=== PATIENT | female | born 1965 | race Caucasian/White ===

== ENCOUNTER → 2017-09-11 | Outpatient (CLI) | payer OTHER ==
[~2017-09-11] MED LIST: ALDACTONE25 MG PO; ASPIR 8181 MG PO; ATORVASTATIN CA40 MG PO; CO Q-10100 MG PO; CRESTOR10 MG; DIOVAN40 MG PO; FISH OIL 1,0001 EAC5 PO; MERIBIN5 MG PO; METFORMIN HCL500 MG PO; NEXIUM40 MG PO; VITAMIN B-12100 MC1; VITAMIN D35000 UNI1; [UNRECOGNIZED DRUG - OTHER]
== END ==
LOC: M.CT 08-29 13:00
DX: J98.11 Atelectasis (principal); K42.9 Umbilical hernia without obstruction or gangrene; K76.0 Fatty (change of) liver, not elsewhere classified; C64.1 Malignant neoplasm of right kidney, except renal pelvis; R06.02 Shortness of breath; I10 Essential (primary) hypertension; E78.00 Pure hypercholesterolemia, unspecified; Z85.528 Personal history of other malignant neoplasm of kidney

== ENCOUNTER → 2018-09-06 | Outpatient (CLI) | payer OTHER | LOC: M.ULTRA 08:00 → M.RAD 08:30 → M.ULTRA 08:55 | DX: Z12.31 Encounter for screening mammogram for malignant neoplasm of breast (principal); R06.2 Wheezing; C64.2 Malignant neoplasm of left kidney, except renal pelvis ==

== ENCOUNTER → 2018-11-26 | Outpatient (CLI) | payer OTHER ==
[2018-11-26 10:55] LABS: HEMATOCRIT 38.7 % (37.0-47.0); HEMOGLOBIN 13.5 gm/dL (12.0-15.0); MCH 32.2 pg (26.0-34.0); MCHC 34.9 g/dL (28.0-37.0); MCV 92.3 fL (80.0-100.0); MPV 6.8 fl. (7.2-11.1); RBC 4.2 mil/uL (4.20-5.00); RDW-CV 12.2 % (10.5-14.5); WBC 6.2 thou/uL (4.0-11.0)
[2018-11-26 11:13] LABS: ALBUMIN 4.2 g/dL (3.4-5.0); ALKALINE PHOSPHATASE 75 U/L (46-116); ANION GAP 7 mmol/L (7-16); BUN 20 mg/dL (7-18); CALCIUM 9.7 mg/dL (8.5-10.1); CHLORIDE 103 mmol/L (98-107); CHOLESTEROL 296 mg/dL (<200); CO2 31 mmol/L (21-32); GLUCOSE 96 mg/dL (70-99); HDL CHOLESTEROL 63 mg/dL (>40); LDL CHOLESTEROL 203 mg/dL (<100); POTASSIUM 4.8 mmol/L (3.5-5.1); SGOT 17 U/L (15-37); SGPT 39 U/L (30-65); SODIUM 141 mmol/L (136-145); TC:HDL 4.7 Ratio (Not establshd); TOTAL BILIRUBIN 0.4 mg/dL (<0.1-1.0); TOTAL PROTEIN 7.7 g/dL (6.4-8.2); TRIGLYCERIDE 153 mg/dL (<150); VLDL 31 mg/dL (<40)
[2018-11-26 11:18] LABS: SERUM ASSESSMENT Clear
== END ==
LOC: M.LAB 10:35
PROVIDERS: Registered Nurse
DX: C64.9 Malignant neoplasm of unspecified kidney, except renal pelvis (principal); R06.09 Other forms of dyspnea; E78.00 Pure hypercholesterolemia, unspecified

== ENCOUNTER → 2018-12-10 | Outpatient (CLI) | payer OTHER ==
[~2018-12-10] MED LIST changes: +DICYCLOMINE HCL20 MG PO; +MAGNESIUM250 M1 PO; +NORTRIPTYLINE H10 M1 PO
--- NOTE | 2018-12-10 16:07 | 2DMMODE ---
[place] [address] 2 D/M-MODE ECHOCARDIOGRAM Name: RAJAN PICKARD Room: [facility]#: [id number] Admission: 12/10/18 Attend Phys: Shane Moreno, Discharge: Date of : 69 Date of Service: 12/10/18 1607 Report #: [id number] THIS REPORT FOR: //name// APPROVED REPORT Study performed: 12/10/2018 15:05:17 EXAM: Comprehensive 2D, Doppler, and color-flow Echocardiogram Patient Location: Out-Patient BSA: 1.67 HR: 60 bpm BP: 123/83 mmHg Other Information Study Quality: Good Indications Dyspnea Chest Pain 2D Dimensions IVSd: 10.73 (7-11mm) LVOT Diam: 20.65 (18-24mm) LVDd: 38.90 mm PWd: 10.36 (7-11mm) Ascending Ao: 26.12 (22-36mm) LVDs: 25.14 (25-40mm) Aortic Root: 25.11 mm Volumes Left Atrial Volume (Systole) LA ESV Index: 20.40 mL/m2 Aortic Valve AoV Peak Kain.: 1.20 m/s AO Peak Gr.: 5.80 mmHg LVOT Max P.36 mmHg AO Mean Gr.: 3.29 mmHg LVOT Mean P.65 mmHg LVOT Max V: 1.16 m/s AO V2 VTI: 21.17 cm LVOT Mean V: 0.75 m/s EDILMA (VTI): 3.56 cm2 LVOT V1 VTI: 22.54 cm Mitral Valve E/A Ratio: 1.01 MV Decel. Time: 217.55 ms MV E Max Kain.: 0.59 m/s MV PHT: 63.09 [place] [address] 2 D/M-MODE ECHOCARDIOGRAM Name: RAJAN PICKARD Room: [facility]#: [id number] Admission: 12/10/18 Attend Phys: Shane Moreno, Discharge: Date of : 69 Date of Service: 12/10/18 1607 Report #: [id number] MVA (PHT): 3.49 cm2 TDI E/Lateral E': 5.36 E/Medial E': 7.38 Medial E' Kain.: 0.08 m/s Lateral E' Kain.: 0.11 m/s Pulmonary Valve PV Peak Kain.: 0.89 m/s PV Peak Gr.: 3.16 mmHg Left Ventricle The left ventricle is normal size. There is significant left ventricular systolic dyssynergy consistent with underlying left bundle branch block. In addition there appears to be significant hypokinesis involving the distal to apical septal and anteroseptal wall. There is normal left ventricular wall thickness. Left ventricular systolic function preserved. LVEF is 50-55%. The left ventricular diastolic function is normal. Right Ventricle The right ventricle is normal size. The right ventricular systolic function is normal. Atria The left atrium size is normal. The right atrium size is normal. Aortic Valve The aortic valve is normal in structure. No aortic regurgitation is present. There is no aortic valvular stenosis. Mitral Valve The mitral valve is normal in structure. There is no mitral valve regurgitation noted. No evidence of mitral valve stenosis. Tricuspid Valve The tricuspid valve is normal in structure. There is no tricuspid valve regurgitation noted. Pulmonic Valve The pulmonary valve is normal in structure. There is no pulmonic valvular regurgitation. Great Vessels The aortic root is normal in size. IVC is normal in size and collapses >50% [place] [address] 2 D/M-MODE ECHOCARDIOGRAM Name: RAJAN PICKARD Room: [facility]#: [id number] Admission: 12/10/18 Attend Phys: Shane Moreno, Discharge: Date of : 69 Date of Service: 12/10/18 1607 Report #: [id number] Pericardium There is no pericardial effusion. <Conclusion> The left ventricle is normal size. There is normal left ventricular wall thickness. Left ventricular systolic function preserved. LVEF is 50-55%. There is significant left ventricular systolic dyssynergy consistent with underlying left bundle branch block. In addition there appears to be significant hypokinesis involving the distal to apical septal and anteroseptal wall. IVC is normal in size and collapses >50% with inspiration. <ELECTRONICALLY SIGNED> By: Shane Moreno MD, FACC 12/10/18 1607 160 160 Shane Moreno MD, FACC /INF
--- NOTE | 2018-12-10 16:26 | CARDNUC ---
[place] [address] CARDIAC NUCLEAR IMAGING REPORT Name: RAJAN PICKARD Room: [facility]#: [id number] Admission: 12/10/18 Attend Phys: Shane Moreno, Discharge: Date of : 69 Date of Service: 12/10/18 1626 Report #: [id number] THIS REPORT FOR: //name// APPROVED REPORT Study performed: 12/10/2018 14:50:56 Exam: Nuclear Stress Test Indication: Chest pain, Palpitations , LE edema. Patient Location: Out-Patient Stress Tech: Trisha Hi Stress Nurse: Shaniqua De La Garza R.N. NM Tech:YAEL Dominguez Ht: 5 ft 2 in Wt: 146 lbs BSA: 1.67 m2 BMI: 26.70 Medical History Medical History: Angina, CAD non obstructive, Diabetes, Fatigue, HTN, Hyperlipidemia, SOB, LBBB, LE edema, Nephrectomy. Medications: Sprionolactone. Allergies: Statins. Cardiac Risk Factors: DM, FHX of CAD, HTN, Hyperlipidemia, LBBB, LE edema. Previous Cardiac Procedures: None Pretest Chest Pain Characteristics: No chest pain Exercise History: Physically active Physical Disabilities: LBBB Meds Held (24 hrs): None Stress Test Details Stress Test: Pharmacologic stress testing performed using 0.4 mg of regadenoson per 5 mL given IV over 10 seconds. Reason for pharmacologic stress test: LBBB. HR Resting HR: 60 bpm Max Heart Rate (APMHR): 169 bpm Max HR Achieved: 107 bpm Target HR (85% APMHR): 143 bpm % of APMHR: 63 Recovery HR: 87 bpm BP Resting BP: 123/83 mmHg Max BP: 120/[place] [address] CARDIAC NUCLEAR IMAGING REPORT Name: RAJAN PICKARD Room: [facility]#: [id number] Admission: 12/10/18 Attend Phys: Shane Moreno, Discharge: Date of : 69 Date of Service: 12/10/18 1626 Report #: [id number] ECG Resting ECG: Sinus Rhythm, LBBB Stress ECG: Sinus Rhythm, LBBB ST Change: None Arrhythmia: None Recovery ECG: Sinus Rhythm, LBBB Recovery ST Change: None Recovery Arrhythmia: None Clinical Reason for Termination: Completed protocol Stress Symptoms: Lightheaded, Chest heaviness. Exercise duration: 00 min 00 sec Exercise capacity: 1.00 METs The patient tolerated Lexiscan infusion without significant cardiac symptoms. Nurse Comments A 53 year old female presented with LBBB and recent c/o CP and Dyspnea and LE edema. Patient tolerated test well. Recovery unremarkable with PO caffeine, effective. Patient was escorted to Echo then to Nuclear Medicine for images. Patient was stable with no complaints at that time. Stress ECG Conclusion The baseline 12-lead EKG shows sinus rhythm with left bundle-branch block. EKGs obtained during and post Lexiscan infusion show sinus rhythm with left bundle-branch block. There were no significant stress-induced arrhythmias. NM EXAM: Myocardial Perfusion REST/STRESS Imaging Protocol: Rest Tc-99m/Stress Tc-99m 1 day Resting Data Rest SPECT myocardial perfusion imaging was performed in supine position 30 minutes following the intravenous injection of 11.5 mCi of Tc-99m Sestamibi. Time of rest injection: 1305 Date: 12/10/2018 The images were gated to evaluate regional wall motion and calculate left ventricular ejection fraction. Administration Route: IV Administration Site: Left AC Pharmacologic Stress Pharmacologic stress test was performed by injecting Regadenoson 0.4 mg IV push followed by the intravenous injection of 32[place]0 [place] [address] CARDIAC NUCLEAR IMAGING REPORT Name: RAJAN PICKARD Room: [facility]#: [id number] Admission: 12/10/18 Attend Phys: Shane Moreno, Discharge: Date of : 69 Date of Service: 12/10/18 1626 Report #: [id number] Tc-99m Sestamibi. Time of stress injection: 1455 Date: 12/10/2018 Administration Route: IV Administration Site: Left AC Gated Stress SPECT was performed 40 minutes after stress injection. The images were gated to evaluate regional wall motion and calculate left ventricular ejection fraction. Prone imaging was performed. Study Quality Study: Good Artifact: No artifact Study Data At rest, the left ventricular ejection fraction was 64%.. Post stress, the left ventricular ejection was 63%.. TID = 0.93. Perfusion Review of the images obtained in the supine position at rest and post Lexiscan stress show a moderate size moderate intensity fixed defect involving the distal anteroapical wall that resolves partially with post stress prone imaging. No other significant fixed or reversible defects were identified. Wall Motion Global LV systolic function appears to be fairly well-preserved with no significant wall motion abnormalities noted. Nuclear Conclusion ECG Findings: non-diagnostic Clinical Findings: negative for ischemia Nuclear Findings: negative for ischemia Exercise Capacity: not assessed Left Ventricular Function: normal Perfusion images show a fixed distal anteroapical defect that is small in size. There is not underlying wall motion abnormality in this region suggesting apical thinning artifact. No other significant fixed or reversible defects were identified. Global LV systolic function appears to be fairly well-preserved. This is not a high risk study. <Conclusion> The baseline 12-lead EKG shows sinus rhythm with left bundle-branch block. EKGs obtained during and post Lexisc[place] [address] CARDIAC NUCLEAR IMAGING REPORT Name: RAJAN PICKARD Room: [facility] [place]#: [id number] Admission: 12/10/18 Attend Phys: Shane Moreno, Discharge: Date of : 69 Date of Service: 12/10/18 1626 Report #: [id number] rhythm with left bundle-branch block. There were no significant stress-induced arrhythmias. <ELECTRONICALLY SIGNED> By: Shane Moreno MD, FACC 12/10/18 1626 25 25 Shane Moreno MD, FACC /INF
== END ==
LOC: M.CRD 11-28 10:41 → M.NUC 13:00
DX: R07.89 Other chest pain (principal); R06.09 Other forms of dyspnea; I25.10 Atherosclerotic heart disease of native coronary artery without angina pectoris; E11.9 Type 2 diabetes mellitus without complications; I10 Essential (primary) hypertension; E78.5 Hyperlipidemia, unspecified; Z79.899 Other long term (current) drug therapy; Z88.8 Allergy status to other drugs, medicaments and biological substances

== ENCOUNTER → 2019-01-08 | Outpatient (CLI) | payer OTHER ==
[2019-01-08] VITALS (8 sets, daily range): BP systolic 11–100; BP diastolic 60–74
[2019-01-08 08:37] LABS: HEMATOCRIT 38.8 % (37.0-47.0); HEMOGLOBIN 13.9 gm/dL (12.0-15.0); MCH 32.8 pg (26.0-34.0); MCHC 35.9 g/dL (28.0-37.0); MCV 91.4 fL (80.0-100.0); MPV 6.8 fl. (7.2-11.1); RBC 4.25 mil/uL (4.20-5.00); RDW-CV 11.8 % (10.5-14.5); WBC 7.1 thou/uL (4.0-11.0)
[2019-01-08 08:48] LABS: ANION GAP 7 mmol/L (7-16); BUN 24 mg/dL (7-18); CALCIUM 9.5 mg/dL (8.5-10.1); CHLORIDE 103 mmol/L (98-107); CO2 28 mmol/L (21-32); CREATININE 1.1 mg/dL (0.6-1.3); GLUCOSE 102 mg/dL (70-99); POTASSIUM 4.1 mmol/L (3.5-5.1); SODIUM 138 mmol/L (136-145)
[2019-01-08 08:49] LABS: ALBUMIN 4.2 g/dL (3.4-5.0); ALKALINE PHOSPHATASE 66 U/L (46-116); CHOLESTEROL 302 mg/dL (<200); HDL CHOLESTEROL 62 mg/dL (>40); LDL CHOLESTEROL 208 mg/dL (<100); SGOT 21 U/L (15-37); SGPT 34 U/L (30-65); TC:HDL 4.9 Ratio (Not establshd); TOTAL BILIRUBIN 0.4 mg/dL (<0.1-1.0); TOTAL PROTEIN 7.7 g/dL (6.4-8.2); TRIGLYCERIDE 160 mg/dL (<150); VLDL 32 mg/dL (<40)
[2019-01-08 08:50] LABS: SERUM ASSESSMENT Clear
[2019-01-08 08:56] LABS: APTT 26.6 Seconds (25.0-31.3); PROTIME 10.2 Seconds (9.20-11.50)
--- NOTE | 2019-01-08 13:47 | EKG ---
[place] [address] ELECTROCARDIOGRAM REPORT Name: RAJAN PICKARD Room: [facility]#: [id number] Admission: 01/08/19 Attend Phys: Kingsley Jama MD, Discharge: Date of : 69 Report #: [id number] THIS REPORT FOR: //name// [facility] Test Date: 2019-01-08 Test Time: 09:14:42 Pat Name: RAJAN PICKARD Department: Room: Gender: F Special Needs Nanny: : 1965 Requested By: Kingsley Jama Order Number: [id number] Reading MD: Kingsley Jama Measurements Intervals Graham Rate: 71 P: 24 PA: 152 QRS: -11 QRSD: 139 T: 107 QT: 426 QTc: 463 Interpretive Statements Sinus rhythm Left bundle branch block Compared to ECG 04/23/2013 12:46:01 No significant changes Electronically Signed On 01-08-2019 13:47:07 GRAZING EXAMINER by Kingsley Jama [email or web address] <ELECTRONICALLY SIGNED> By: Kingsley Jama MD, [facility] 01/08/19 1347 3 Kingsley Jama MD, FACC /EPI
--- NOTE | 2019-01-08 14:36 | CARD ---
[address] [address] CARDIAC CATH REPORT Name: RAJAN PICKARD Room: [facility] CARI Rojas#: [id number] Admission: 01/08/19 Attend Phys: Kingsley Jama MD, Discharge: Date of : 69 Report #: [id number] THIS REPORT FOR: //name// APPROVED REPORT Study performed: 01/08/2019 09:07:09 Patient Details Patient Status: Out-Patient Room #: The patient is a 53 year-old female Event Personnel Kingsley Jama Supervisor [employer], Lore Louis RN [employer], Ruba Cole RN [employer]er, George Foley RTR Scrub, Aurea [place] RTR Monitor Procedures Performed Art Access - R radial artery, Left Heart Cath w/or w/o Coronaries [facility] Indication Positive stress test Risk Factors Family History, Hypercholesterolemia Admission/Lab Medications/Medications given during procedure Heparin IV 4000 units, Nitroglycerin IA 200 mcg, Verapamil IV 2.5 mg, Dopamine IV 10 mcg per kg per min (Increased to 15 and then 20 mcg/kg. Decreased to 5 mcg/kg and subsequently D'CD.) Epinephrine IV 0.5 mg, Solumedrol IV 125 mg Procedure Narrative The patient was brought electively to the Cardiac Catheterization Laboratory and was prepped and draped in a sterile manner. The right wrist was infiltrated with 2% Lidocaine subcutaneous anesthesia. A 6F Slender Glidesheath sheath was inserted into the right radial artery. Coronary angiography was performed using coronary diagnostic catheters. The right coronary system was accessed and visualized with a 5F JR4 catheter. The left coronary system was accessed and visualized with a [place] 4.0 6fr catheter. Left ventricular pressures were obtained with the 6F [place] catheter. The patient developed significant hypotension during the procedure which responded to infusion of crystalloid and 0.5 mg of epine[place] [address] CARDIAC CATH REPORT Name: RAJAN PICKARD Room: [facility]#: [id number] Admission: 01/08/19 Attend Phys: Kingsley Jama MD, Discharge: Date of : 69 Report #: [id number] Intraoperative Conscious Sedation Sedation start time: 09:50 Case end Time: 10:35 Fentanyl 25 mcg Versed 2 mg Fluoro Time: 4.3 minutes Dose: DAP 38624 cGycm2 497 mGy Contrast Type and Amount: Visipaque 35 ml Coronary Angiography The patient's coronary anatomy is right dominant. Diagnostic Cath Left Main 0% narrowing LAD Tandem 30% mid LAD stenosis with local calcification Circumflex 0% narrowing Right Coronary 0% narrowing Left Ventriculography Left Ventriculography was not performed. Hemodynamics The aortic pressure is 136/75 mmHg with a mean of 92 mmHg. The left ventricular pressure is 98/1 mmHg with a mean of mmHg. The left ventricular end diastolic pressure is 3 mmHg. Conclusion #1 mild coronary artery disease characterized by the following: A tandem 30% mid LAD narrowings with local calcification at those sites #2 normal left-sided hemodynamic study #3 the patient developed hypotension during the procedure which responded to infusion of crystalloid and .5 mg of epinephrine intravenously Recommendations Cardiac [place] [address] CARDIAC CATH REPORT Name: RAJAN PICKARD Room: [facility]#: [id number] Admission: 01/08/19 Attend Phys: Kingsley Jama MD, Discharge: Date of : 69 Report #: [id number] Diagnostic Cath Approved by: Kingsley Jama MD Date/Time: 01/08/2019 14:35:09 <ELECTRONICALLY SIGNED> By: Kingsley Jama MD, FACC 01/08/19 1436 1436 1436Joeyal Jama MD, FACC /INF
== END | disposition home or self-care (01) ==
LOC: M.CL 07:30
PROVIDERS: Internal Medicine
DX: R94.39 Abnormal result of other cardiovascular function study (principal); I25.10 Atherosclerotic heart disease of native coronary artery without angina pectoris; E78.00 Pure hypercholesterolemia, unspecified; Z87.891 Personal history of nicotine dependence; Z88.8 Allergy status to other drugs, medicaments and biological substances; Z79.82 Long term (current) use of aspirin; Z79.899 Other long term (current) drug therapy; Z98.890 Other specified postprocedural states; Z82.49 Family history of ischemic heart disease and other diseases of the circulatory system; Z79.01 Long term (current) use of anticoagulants